=== PATIENT | female | born 2000 | race African-American/Black ===

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

== ENCOUNTER 2021-03-02 18:11 | Emergency (ER) | payer OTHER ==
[~2021-03-02] VITALS: Ht 172.7 cm; Wt 67.1 kg
[~2021-03-02 18:11] MED LIST: CLARITIN10 MG PO; IBUPROFEN 800800 M1 PO
[2021-03-02 18:26] VITALS: BP 116/57
== END 2021-03-02 19:47 | disposition home or self-care (01) ==
LOC: ER 18:11
DX: O9A.213 Injury, poisoning and certain other consequences of external causes complicating pregnancy, third trimester (principal); S46.912A Strain of unspecified muscle, fascia and tendon at shoulder and upper arm level, left arm, initial encounter; Z79.899 Other long term (current) drug therapy; Z3A.49 Greater than 42 weeks gestation of pregnancy; X58.XXXA Exposure to other specified factors, initial encounter; Y93.89 Activity, other specified; Y92.89 Other specified places as the place of occurrence of the external cause; Y99.8 Other external cause status